=== PATIENT | female | born 1990 | race Caucasian/White ===

== ENCOUNTER 2019-03-14 10:48 | Emergency (ER) | payer MEDICAID ==
[2019-03-14] MEDS ORDERED: OXYCODONE-ACETAMINOPHEN 5-325 MG TABLET PO ONE (11:25)
[2019-03-14] MEDS ORDERED: PROMETHAZINE HCL 25 MG TABLET PO ONE (11:25)
[2019-03-14] MEDS ORDERED: CEFTRIAXONE 1 GM/D5W RTU 1 GM/50 ML RTUPB IV ONE (11:28)
--- NOTE | 2019-03-14 11:40 | ER Document Report ---
ED Breast Problem - General Chief Complaint: Breast Problem Stated Complaint: PAIN IN BREAST Time Seen by Provider: 03/14/19 11:19 Primary Care Provider: DARREN JON MD [ACTIVE STAFF] - Follow up as needed Notes: Patient is complaining of pain and swelling of her right breast. She says that she noted pain of the anterior lateral right breast for about 3 days and then swelling for 1 day. There is been no drainage. Patient had surgery on that breast a couple of months ago in [place] and says she was never told that there was any cancer or other serious condition. TRAVEL OUTSIDE OF THE [place] IN LAST 30 DAYS: No - Related Data Allergies/Adverse Reactions: azithromycin Allergy (Verified 03/14/19 10:49) Past Medical History - Social History Smoking Status: Current Every Day Smoker Frequency of alcohol use: None Drug Abuse: None Family History: Reviewed & Not Pertinent Patient has suicidal ideation: No Patient has homicidal ideation: No Malignancy Medical History: Denies: Hx Breast Cancer Past Surgical History: Reports: Hx Breast Surgery, Hx Section - x2 - Immunizations Hx Diphtheria, Pertussis, Tetanus Vaccination: No - contraindicated Review of Systems - Review of Systems Notes: CONSTITUTIONAL : Denies fever. CARDIOVASCULAR: Denies chest pain. RESPIRATORY: Denies cough, chest congestion, or shortness of breath. GASTROINTESTINAL: Denies abdominal pain or nausea, vomiting, or diarrhea. GENITOURINARY: Denies difficulty or painful urinating, urinary frequency, blood in urine. Physical Exam - Vital signs Vitals: Temp Pulse Resp BP Pulse Ox 98.3 F 69 16 135/73 H 98 03/14/19 10:52 03/14/19 10:52 03/14/19 10:52 03/14/19 10:52 03/14/19 10:52 Interpretation: Normal Notes: PHYSICAL EXAMINATION: GENERAL: Well-appearing, in no acute distress. HEAD: Atraumatic, normocephalic. NECK: Normal range of motion, supple. LUNGS: Breath sounds clear and equal bilaterally. HEART: Regular rate and rhythm without murmurs. ABDOMEN: Soft, nontender. No guarding or rebound. No masses. BACK: No tenderness throughout entire back. BREAST: Left breast is normal. Right breast is slightly swollen to appearance and touch and very tender at the right nipple and just lateral to the right nipple and feels as if there may be a collection of fluid present there. Very faint pink hue in the region around the nipple into the right side of the nipple. Scarring from previous surgical procedure present. SKIN: Warm, dry, no rashes.B Course - Vital Signs Vital signs: Temp Pulse Resp BP Pulse Ox 98.3 F 69 16 135/73 H 98 03/14/19 10:52 03/14/19 10:52 03/14/19 10:52 03/14/19 10:52 03/14/19 10:52 - Laboratory Result Diagrams: 03/14/19 12:35 03/14/19 12:35 Discharge - Discharge Clinical Impression: Mastitis Condition: Stable Disposition: HOME, SELF-CARE Additional Instructions: Mastitis (Breast Infection) You have an infection in your breast, called mastitis. This is due to bacteria invading the breast through the milk ducts. Mastitis can be serious, and must be treated carefully. Antibiotics are required. Usually, warm packs are recommended. Some improvement should be evident within 24 to 36 hours. If you're breast-feeding, you should continue to nurse the baby. The baby won't be harmed by the milk from the infected breast. If you stop nursing, the breast must be pumped. If milk builds up in the breast, the infection can dramatically worsen! Follow-up care is important to check for abscess (boil) formation or resistant infection. If you develop fever, chills, or if the area of infection is becoming rapidly more swollen or painful, call the doctor at once. CELLULITIS: You have an infection of your skin and underlying soft tissues called cellulitis. This is due to bacteria, which can enter through any break in the skin, or even through an irritated hair follicle. Untreated, cellulitis will usually worsen. Antibiotics are required. Usually, warm packs or warm soaks, and elevation of the infected area are recommended. You should start getting better within 24 to 36 hours. Most infections respond quickly to the right medication. Follow-up care is important, however, to check for abscess (boil) formation, unsuspected foreign body, or resistant infection. If you develop fever, chills, or if the area of infection is becoming rapidly more swollen or painful, call the doctor at once. ANTIBIOTIC THERAPY: You have been given an antibiotic prescription. It's important that you take all the medication, unless instructed otherwise by your physician. Failure to complete the entire course can result in relapse of your condition. Common side effects of antibiotics include nausea, intestinal cramping, or diarrhea. Women may develop vaginal yeast infections, and babies can get yeast (thrush) in the mouth following the use of antibiotics. Contact your physician if you develop significant side effects from this medication. Allergy to this antibiotic can result in hives, wheezing, faintness, or itching. If symptoms of allergy occur, stop the medication and call the doctor. Cephalexin The antibiotic you've been prescribed is a member of the cephalosporin class. This type of antibiotic covers a wide variety of infections, including those of the skin, lungs, and urinary tract. It's useful for staph infections. This antibiotic is slightly similar to the penicillin family. In rare cases, a person who is allergic to penicillin will also be allergic to this medication. If you have had a severe allergic reaction to penicillin, and have not taken this antibiotic since that time, notify your doctor. Antibiotics which cover many germs ("broad spectrum" antibiotics) are more likely to cause diarrhea or "yeast" infections. Women prone to vaginal yeast problems may suffer an attack after taking this antibiotic. In infants, oral thrush (white spots "stuck" on the cheek) or yeast diaper rash may result. See your doctor if these problems occur. Call at once if you develop itching, hives, shortness of breath, or lightheadedness. ORAL NARCOTIC MEDICATION: You have been given a prescription for pain control. This medication is a narcotic. It's best taken with food, as nausea can result if taken on an empty stomach. Don't operate machinery or drive within six hours of taking this medication. Do not combine this medicine with alcohol, or with any medication which can cause sedation (such as cold tablets or sleeping pills) unless you get permission from the physician. Narcotics tend to cause constipation. If possible, drink plenty of fluids and eat a diet high in fiber and fruits. Please be aware that prescription narcotics also have the potential for abuse. People become addicted to these medications because of the general sense of wellbeing that they induce. This feeling along with a significant reduction in tension, anxiety, and aggression provides a stimulating seductive quality to these drugs. Once your pain is under control, we encourage you to discard your unused narcotics. Antinausea Medication You have been given a medication to suppress nausea and vomiting. This type of medication can be given as a shot, pill, or suppository. It will usually last for many hours. Pills and shots usually last six to eight hours, suppositories last about 12 hours. For the typical illness, only one or two doses of the medication may be necessary. Mild lightheadedness may occur. This type of medicine can cause drowsiness. Do not drive or operate dangerous machinery while under its influ ence. Do not mix with alcohol. See your doctor at once if you have muscle spasms or tightness, or uncontrollable motions (particularly of the neck, mouth, or jaw). Persistent vomiting or severe lightheadedness should also be evaluated by the physician. FOLLOW-UP CARE: If you have been referred to a physician for follow-up care, call the physicians office for an appointment as you were instructed or within the next two days. If you experience worsening or a significant change in your symptoms, notify the physician immediately or return to the Emergency Department at any time for re-evaluation. Apply warm compresses to the right breast for about 15 to 20 minutes every 4 ho urs, more often if you are able to. Take the medication as prescribed. Return if your symptoms worsen. Prescriptions: Cephalexin [Cephalexin 500 MG Tablet] 1 tab PO TID #30 tablet Oxycodone HCl/Acetaminophen [Percocet 5-325 mg Tablet] 1 - 2 tab PO Q4H PRN #15 tablet PRN Reason: Promethazine HCl [Phenergan 25 mg Tablet] 1 - 2 tab PO Q6H PRN #15 tablet PRN Reason: Referrals: DARREN JON MD [ACTIVE STAFF] - Follow up as needed
[2019-03-14 12:53] LABS: ABSOLUTE BASOPHILS # (AUTO) 0.1 10^3/uL (0.0-0.2); ABSOLUTE EOSINOPHILS # (AUTO) 0.1 10^3/uL (0.0-0.6); ABSOLUTE LYMPHOCYTES (AUTO) 2.4 10^3/uL (0.5-4.7); ABSOLUTE MONOCYTES (AUTO) 0.8 10^3/uL (0.1-1.4); ABSOLUTE NEUT (AUTO) 6.2 10^3/uL (1.7-8.2); BASOPHILS % (AUTO) 0.9 % (0-2); EOSINOPHILS % (AUTO) 1.1 % (0-6); HEMATOCRIT 45.6 % (36.0-47.0); HEMOGLOBIN 15.9 g/dL (12.0-15.5); LYMPHOCYTES % (AUTO) 25.4 % (13-45); MEAN CORPUSCULAR HEMOGLOBIN 33.2 pg (27.0-33.4); MEAN CORPUSCULAR VOLUME 95 fl (80-97); MONOCYTES % (AUTO) 8.6 % (3-13); PLATELET COUNT 203 10^3/uL (150-450); RED BLOOD COUNT 4.79 10^6/uL (3.72-5.28); RED CELL DISTRIBUTION WIDTH 12.7 % (11.5-14.0); TOTAL CELLS COUNTED % (AUTO) 100 %; WHITE BLOOD COUNT 9.6 10^3/uL (4.0-10.5)
[2019-03-14 13:12] LABS: ALBUMIN 4.1 g/dL (3.5-5.0); ALKALINE PHOSPHATASE 55 U/L (38-126); ANION GAP 9 (5-19); ASPARTATE AMINO TRANSFERASE 20 U/L (14-36); BILIRUBIN,DIRECT 0.3 mg/dL (0.0-0.4); BILIRUBIN,TOTAL 0.5 mg/dL (0.2-1.3); BLOOD UREA NITROGEN 10 mg/dL (7-20); CALCIUM 9.3 mg/dL (8.4-10.2); CARBON DIOXIDE 23 mmol/L (22-30); CHLORIDE 107 mmol/L (98-107); POTASSIUM 4.1 mmol/L (3.6-5.0); TOTAL PROTEIN 6.9 g/dL (6.3-8.2)
[2019-03-14 13:18] LABS: GLUCOSE 67 mg/dL (75-110)
[2019-03-14] MEDS ORDERED: DEXTROSE 50%-WATER 25 GM/50 ML DISP.SYRIN IV ONE ×4 (13:20→13:25)
[2019-03-14 14:42] VITALS: BP 126/60
--- NOTE | 2019-03-14 14:50 | RADIOLOGY REPORT (SQ) ---
EXAM DESCRIPTION: U/S BREAST UNILATERAL LIMITED COMPLETED DATE/TIME: 03/14/2019 1:48 pm REASON FOR STUDY: Surgery right breast months ago, pain,swelling X2D COMPARISON: None TECHNIQUE: Static and Realtime grayscale interrogation of the lateral half right breast in the area of pain and swelling. Selected color doppler/spectral images saved to PACS. LIMITATIONS: None. FINDINGS: Patient has a history of mastitis right lateral breast, and surgical drainage several dewey hs ago. She returns to the emergency room today with redness swelling and pain in the lateral half o f the right breast. Ultrasound of the lateral right breast demonstrates no discrete cystic lesions. No well circumscribe d abscess. No worrisome acoustic absorption. Findings discussed with Dr. Pinon in the emergency room. IMPRESSION: No ultrasound evidence of right lateral breast abscess BIRAD: 1 Negative. RECOMMENDATION: RECOMMENDED FOLLOW-UP: Clinical follow-up recommended COMMENT: The [employer] ([employer]) has developed recommendations for screening MRI of the breasts in certain patient populations, to be used in conjunction with mammography. Breast MRI s urveillance may be appropriate for women with more than 20% lifetime risk of developing breast cancer as determined by genetic testing, significant family history of the disease, or history of mantle r adiation for Hodgkins Disease. ACR Practice Guidelines 2008. TECHNICAL DOCUMENTATION: FINDING NUMBER: (1) ASSESSMENT: (1) JOB ID: [id number] [employer]- All Rights Reserved Reading location - IP/workstation name: [email or web address]
== END 2019-03-14 15:30 | disposition home or self-care (01) ==
LOC: ER 10:48
DX: N64.4 Mastodynia (principal); F17.200 Nicotine dependence, unspecified, uncomplicated; Z88.3 Allergy status to other anti-infective agents
CPT/HCPCS: 99284; 96375; 96365; 36415; 82962; 85025; 80053; 76642; J3490 ×2; J0696

== ENCOUNTER 2019-09-18 14:02 | Observation (INO) | payer MEDICAID ==
[2019-09-18] MEDS ORDERED: ASPIRIN 81 MG TABLET, CHEWABLE PO ONE (14:27)
--- NOTE | 2019-09-18 14:38 | ER Document Report ---
ED General - General Chief Complaint: Chest Pain Stated Complaint: CHEST PAIN,LEFT SHOULDER PAIN Time Seen by Provider: 09/18/19 14:21 Primary Care Provider: DAJUAN YANEZ FNP-C [Primary Care Provider] - Follow up as needed Mode of Arrival: Ambulatory Information source: Patient Notes: 29-year-old female arrives by POV through triage with left sided chest pain radiating to her left jaw since around 2100 hours last night. She was at taoism at the time when this occurred. Patient has been a 1 pack/day smoker since she was 13 years old. Her father at age 62 from [place]. Her mother is 20 years older than her and had an [place] when she was much younger. They were all smokers. Patient denies any alcohol use or drug use. She has never had this in the past. She did have nausea but no vomiting associated with this and is quite tearful at this time. She denies any deaths in the family or any emotional trauma at this time. Her chest pain is around 5 out of 10. TRAVEL OUTSIDE OF THE [place] IN LAST 30 DAYS: No - HPI Onset: This evening Quality of pain: Achy Severity: Moderate Pain Level: 2 Associated symptoms: Nausea Exacerbated by: Movement, Deep breathing Relieved by: Denies Similar symptoms previously: No Recently seen / treated by doctor: No - Related Data Allergies/Adverse Reactions: azithromycin Allergy (Verified 03/14/19 10:49) Past Medical History - General Information source: Patient - Social History Smoking Status: Current Every Day Smoker Cigarette use (# per day): Yes - 3/4-1 ppd Chew tobacco use (# tins/day): No Smoking Education Provided: Yes Frequency of alcohol use: None Drug Abuse: None Lives with: Family Family History: Reviewed & Not Pertinent Patient has suicidal ideation: No Patient has homicidal ideation: No Malignancy Medical History: Denies: Hx Breast Cancer Past Surgical History: Reports: Hx Breast Surgery, Hx Section - x2 - Immunizations Hx Diphtheria, Pertussis, Tetanus Vaccination: No - contraindicated Review of Systems - Review of Systems Constitutional: No symptoms reported EENT: No symptoms reported Cardiovascular: Chest pain Respiratory: No symptoms reported Gastrointestinal: See HPI, Nausea Genitourinary: No symptoms reported Female Genitourinary: No symptoms reported Musculoskeletal: No symptoms reported Skin: No symptoms reported Hematologic/Lymphatic: No symptoms reported Neurological/Psychological: No symptoms reported Physical Exam - Vital signs Vitals: Temp Pulse Resp BP Pulse Ox 99.3 F 42 L 16 143/91 H 98 09/18/19 14:21 09/18/19 14:21 09/18/19 14:21 09/18/19 14:21 09/18/19 14:21 Interpretation: Normal - HEENT Head: Normocephalic Eyes: Normal Conjunctiva: Normal Cornea: Normal Extraocular movements intact: Yes Eyelashes: Normal Pupils: PERRL Mucous membranes: Normal Pharynx: Erythema Neck: Normal - Respiratory Respiratory status: No respiratory distress Chest status: Nontender Breath sounds: Normal Chest palpation: Normal - Cardiovascular Rhythm: Regular Heart sounds: Normal auscultation Murmur: Yes Friction rub: No Ting's crunch: No - Abdominal Inspection: Normal Distension: No distension Bowel sounds: Normal Tenderness: Nontender Organomegaly: No organomegaly - Back Back: Normal - Extremities General upper extremity: Normal inspection General lower extremity: Normal inspection - Neurological Neuro grossly intact: Yes Cognition: Normal Orientation: AAOx4 [place] Coma Scale Eye Opening: Spontaneous [place] Coma Scale Verbal: Oriented [place] Coma Scale Motor: Obeys Commands Etta Coma Scale Total: 15 Speech: Normal Cranial nerves: Normal Cerebellar coordination: Normal Motor strength normal: LUE, RUE, LLE, RLE - Psychological Associated symptoms: Normal affect - Skin Skin Temperature: Warm Skin Moisture: Dry Course - Vital Signs Vital signs: Temp Pulse Resp BP Pulse Ox 99.3 F 42 L 23 H 102/74 98 09/18/19 14:21 09/18/19 14:21 09/18/19 17:01 09/18/19 17:01 09/18/19 17:01 - Laboratory Result Diagrams: 09/18/19 14:35 09/18/19 14:35 Laboratory results interpreted by me: 09/18/19 14:35 Hgb 16.7 H MCH 33.5 H - Diagnostic Test Radiology reviewed: Reports reviewed - EKG Interpretation by Me EKG shows normal: Sinus rhythm Rate: Normal Rhythm: Other - Question of ST elevation in the inferior leads Critical Care Note - Critical Care Note Total time excluding time spent on procedures (mins): 90 Comments: I discussed this case with Dr. Goldman and also with ASAD [place] and also with Dr. Martinez. We will place in hospital for observation admission to rule out MS Discharge - Discharge Clinical Impression: Chest pain at rest, Cigarette smoker Condition: Good Disposition: ADMITTED INPATIENT Admitting Provider: Zion (Hospitalist) Referrals: DAJUAN YANEZ FNP-C [Primary Care Provider] - Follow up as needed
[2019-09-18] MEDS ORDERED: ONDANSETRON HCL INJ/PF 4 MG/2 ML SDV IV ONE (15:07)
[2019-09-18] MEDS ORDERED: MORPHINE SULFATE 10 MG/ML INJ IV ONE (15:07)
[2019-09-18 15:08] LABS: ABSOLUTE BASOPHILS # (AUTO) 0.1 10^3/uL (0.0-0.2); ABSOLUTE EOSINOPHILS # (AUTO) 0.1 10^3/uL (0.0-0.6); ABSOLUTE LYMPHOCYTES (AUTO) 2.5 10^3/uL (0.5-4.7); ABSOLUTE MONOCYTES (AUTO) 0.5 10^3/uL (0.1-1.4); ABSOLUTE NEUT (AUTO) 6.1 10^3/uL (1.7-8.2); BASOPHILS % (AUTO) 0.6 % (0-2); EOSINOPHILS % (AUTO) 0.6 % (0-6); HEMATOCRIT 46.8 % (36.0-47.0); HEMOGLOBIN 16.7 g/dL (12.0-15.5); LYMPHOCYTES % (AUTO) 27.1 % (13-45); MEAN CORPUSCULAR HEMOGLOBIN 33.5 pg (27.0-33.4); MEAN CORPUSCULAR HGB CONC 35.7 g/dL (32.0-36.0); MEAN CORPUSCULAR VOLUME 94 fl (80-97); MONOCYTES % (AUTO) 5.6 % (3-13); PLATELET COUNT 226 10^3/uL (150-450); RED BLOOD COUNT 4.99 10^6/uL (3.72-5.28); RED CELL DISTRIBUTION WIDTH 12.8 % (11.5-14.0); SEGMENTED NEUTROPHILS % (AUTO) 66.1 % (42-78); TOTAL CELLS COUNTED % (AUTO) 100 %; WHITE BLOOD COUNT 9.3 10^3/uL (4.0-10.5)
[2019-09-18 15:24] LABS: INTERNATIONAL RATION (INR) 0.94; PROTHROMBIN TIME 12.6 SEC (11.4-15.4)
[2019-09-18 15:26] LABS: ALBUMIN 4.5 g/dL (3.5-5.0); ALKALINE PHOSPHATASE 69 U/L (38-126); ANION GAP 11 (5-19); ASPARTATE AMINO TRANSFERASE 22 U/L (14-36); BILIRUBIN,DIRECT 0.3 mg/dL (0.0-0.4); BILIRUBIN,TOTAL 0.4 mg/dL (0.2-1.3); BLOOD UREA NITROGEN 11 mg/dL (7-20); CALCIUM 9.7 mg/dL (8.4-10.2); CARBON DIOXIDE 23 mmol/L (22-30); CHLORIDE 105 mmol/L (98-107); CREATINE KINASE 65 U/L (30-135); GLUCOSE 83 mg/dL (75-110); POTASSIUM 4.1 mmol/L (3.6-5.0); TOTAL PROTEIN 7.8 g/dL (6.3-8.2)
[2019-09-18 15:35] LABS: CREATINE KINASE MB 0.39 ng/mL (<4.55); PARTIAL THROMBOPLASTIN TIME 28.6 SEC (23.5-35.8)
[2019-09-18 15:40] LABS: TROPONIN I < 0.012 ng/mL
--- NOTE | 2019-09-18 15:42 | RADIOLOGY REPORT (SQ) ---
EXAM DESCRIPTION: CHEST SINGLE VIEW COMPLETED DATE/TIME: 09/18/2019 3:14 pm REASON FOR STUDY: chest pain COMPARISON: None. EXAM PARAMETERS: NUMBER OF VIEWS: One view. TECHNIQUE: Single frontal radiographic view of the chest acquired. RADIATION DOSE: NA LIMITATIONS: None. FINDINGS: LUNGS AND PLEURA: No opacities, masses or pneumothorax. No pleural effusion. MEDIASTINUM AND HILAR STRUCTURES: No masses. Contour normal. HEART AND VASCULAR STRUCTURES: Heart normal in size. Normal vasculature. BONES: No acute findings. HARDWARE: None in the chest. OTHER: No other significant finding. IMPRESSION: NO ACUTE RADIOGRAPHIC FINDING IN THE CHEST. TECHNICAL DOCUMENTATION: JOB ID: [id number] [employer]- All Rights Reserved Reading location - IP/workstation name: [email or web address]
[2019-09-18] MEDS ORDERED: OXYCODONE-ACETAMINOPHEN 5-325 MG TABLET PO PRN (18:21)
[2019-09-18] MEDS ORDERED: ZOLPIDEM TARTRATE 5 MG TABLET PO PRN (18:21)
[2019-09-18] MEDS ORDERED: ACETAMINOPHEN 325 MG TABLET PO PRN (18:21)
[2019-09-18] MEDS ORDERED: IPRATROPIUM/ALBUTEROL 0.5-2.5 MG/3 ML AMPUL NEB PRN (18:21)
[2019-09-18] MEDS ORDERED: MORPHINE SULFATE 10 MG/ML INJ IV PRN (18:21)
--- NOTE | 2019-09-18 18:37 | PDOC H&P ---
History of Present Illness Admission Date/PCP: BENJAMÍN PRICE Patient complains of: Patient presents emergency room with complaints of left- sided chest pain which started yesterday History of Present Illness: BALDO RACHEL is a 29 year old female Patient presents emergency room with complaints of left-sided chest pain which started yesterday. She says it is radiating up jaw as well as down her left. She denies any previous episode. She gives a history of cardiac disease in her family. Her father at age 62 from an [place] and mother also had an [place] at about age 50. Patient does smoke about 1 pack a day. She denies any chest pain at this time. She said her chest pain was relieved with aspirin and morphine that was given in the ER. She denies any nausea vomiting or any other pertinent symptoms. Past Medical History Medical History: None Malignancy Medical History: Denies: Breast Cancer Past Surgical History Past Surgical History: Reports: Section - x2 Social History Information Source: Patient Lives with: Family Smoking Status: Current Every Day Smoker Electronic Cigarette use?: No Frequency of Alcohol Use: Rare Hx Recreational Drug Use: No Hx Prescription Drug Abuse: No - Advance Directive Resuscitation Status: Full Code Family History Parental Family History Reviewed: Yes - Father from [place] mother also had [place] at age 50 Children Family History Reviewed: Yes Sibling(s) Family History Reviewed.: Yes Medication/Allergy Allergies/Adverse Reactions: azithromycin Allergy (Verified 03/14/19 10:49) Review of Systems All systems: reviewed and no additional remarkable complaints except as stated Cardiovascular: ABSENT: dyspnea on exertion, edema, orthropnea, palpitations Respiratory: ABSENT: cough Physical Exam Vital Signs: Temp Pulse Resp BP Pulse Ox 99.3 F 42 L 23 H 94/67 L 95 09/18/19 14:21 09/18/19 14:21 09/18/19 18:01 09/18/19 18:01 09/18/19 18:01 Intake & Output 09/17/19 09/18/19 09/19/19 06:59 06:59 06:59 Weight 126.7 kg General appearance: PRESENT: no acute distress, well-developed, well-nourished Head exam: PRESENT: atraumatic, normocephalic Eye exam: PRESENT: conjunctiva pink, EOMI, PERRLA. ABSENT: scleral icterus Ear exam: PRESENT: normal external ear exam Mouth exam: PRESENT: moist, tongue midline Neck exam: ABSENT: carotid bruit, JVD, lymphadenopathy, thyromegaly Respiratory exam: PRESENT: clear to auscultation sedrick. ABSENT: rales, rhonchi, wheezes Cardiovascular exam: PRESENT: irregular rhythm, +S1, +S2. ABSENT: diastolic murmur, rubs, systolic murmur Pulses: PRESENT: normal dorsalis pedis pul Vascular exam: PRESENT: normal capillary refill GI/Abdominal exam: PRESENT: normal bowel sounds, soft. ABSENT: distended, guarding, mass, organolmegaly, rebound, tenderness Rectal exam: PRESENT: deferred Extremities exam: PRESENT: full ROM. ABSENT: calf tenderness, clubbing, pedal edema Neurological exam: PRESENT: alert, awake, oriented to person, oriented to place, oriented to time, oriented to situation, CN II-XII grossly intact. ABSENT: motor sensory deficit Psychiatric exam: PRESENT: appropriate affect, normal mood. ABSENT: homicidal ideation, suicidal ideation Skin exam: PRESENT: dry, intact, warm. ABSENT: cyanosis, rash Results Laboratory Results: 09/18/19 14:35 09/18/19 14:35 09/18/19 09/18/19 09/18/19 14:35 14:35 14:35 WBC 9.3 RBC 4.99 Hgb 16.7 H Hct 46.8 MCV 94 MCH 33.5 H MCHC 35.7 RDW 12.8 Plt Count 226 Seg Neutrophils % 66.1 Sodium 139.2 Potassium 4.1 Chloride 105 Carbon Dioxide 23 Anion Gap 11 BUN 11 Creatinine 0.75 Est GFR ( Amer) > 60 Glucose 83 Calcium 9.7 Total Bilirubin 0.4 AST 22 Alkaline Phosphatase 69 Total Protein 7.8 Albumin 4.5 TSH 1.35 09/18/19 09/18/19 09/18/19 14:35 14:35 17:29 Creatine Kinase 65 CK-MB (CK-2) 0.39 Troponin I < 0.012 < 0.012 Impressions: Chest X-Ray 09/18/19 14:22 IMPRESSION: NO ACUTE RADIOGRAPHIC FINDING IN THE CHEST. Assessment and Plan - Diagnosis (1) Chest pain at rest Is this a current diagnosis for this admission?: Yes (2) Arrhythmia, atrial Is this a current diagnosis for this admission?: Yes (3) Cigarette smoker Is this a current diagnosis for this admission?: Yes - Plan Summary Summary: Have not been able to review the EKG so was not available in the computer for me however the ED physician did states that EKG showed some abnormal T waves and so he consulted cardiology. Dr. Goldman apparently ruled evaluate patient later. At this time as she apparently had abnormal EKG I have deferred ordering any on telemetry. . I will defer starting on any metoprolol at this time. stress test pending review by the smooth plater. When I was also in the room I noted t he patient had some variable and irregular heart rate She was asymptomatic but her heart rate did get down into about 48 She will be monitored on telemetry I will order an echocardiogram however - Time Time Spent with patient: 25-34 minutes Smoking Cessation Education: 3 to 10 minutes Anticipated discharge: Home Within: within 24 hours - Inpatient Certification Based on my medical assessment, after consideration of the patient's comorbidities, presenting symptoms, or acuity I expect that the services needed warrant INPATIENT care.: Yes
[2019-09-19 04:36] LABS: APPEARANCE,URINE CLEAR; BILIRUBIN,URINE NEGATIVE (NEGATIVE); COLOR,URINE YELLOW; GLUCOSE, URINE NEGATIVE (NEGATIVE); KETONES,URINE NEGATIVE (NEGATIVE); LEUKOCYTE ESTERASE,URINE NEGATIVE (NEGATIVE); NITRITE,URINE NEGATIVE (NEGATIVE); PROTEIN,URINE NEGATIVE (NEGATIVE); URINE SPECIFIC GRAVITY 1.016; UROBILINOGEN,URINE NEGATIVE mg/dL (<2.0)
[2019-09-19] MEDS ORDERED: PANTOPRAZOLE SODIUM 40 MG TABLET.DR PO SCH (06:00)
[2019-09-19] MEDS ORDERED: ENOXAPARIN SODIUM INJ 40 MG/0.4 ML DISP.SYRIN SUBCUT SCH (10:00)
[2019-09-19] MEDS ORDERED: ASPIRIN 81 MG TABLET, ENT COATED PO SCH (10:00)
--- NOTE | 2019-09-19 11:00 | PDOC CONSULTATION ---
Consultation Consult Date: 09/19/19 Attending physician:: ROMY HAGAN Provider Consulted: DEVANTE BAUMANN Consult reason:: Chest pain History of Present Illness Admission Date/PCP: 09/18/19 18:29 BENJAMÍN PRICE Patient complains of: Chest pain History of Present Illness: BALDO RACHEL is a 29 year old female with no significant prior medical history presents with chest pain since last three days. Acute onset. No recent illness. No prior cardiac history whatsoever. Smokes less than a pack of cigarettes/day. Chest pain is somewhat positional. Left upper chest with radiation to the left shoulder. No associated symptoms. No diaphoresis or nausea. No palpitations or syncope. Chest pain is better lying down and worse sitting up. No pleuritic component. If she takes a large breath and holds it the chest pain is better. Works with children. Family h/o premature CAD Does not mention any surgeries. Past Medical History Malignancy Medical History: Denies: Breast Cancer Psychiatric Medical History: Reports: Depression Past Surgical History Past Surgical History: Reports: Section - x2 Social History Lives with: Family Smoking Status: Current Every Day Smoker Cigarettes Packs Per Day: 1 Electronic Cigarette use?: No Number of Years Smokin Frequency of Alcohol Use: Rare Hx Recreational Drug Use: No Drugs: None Hx Prescription Drug Abuse: No - Advance Directive Resuscitation Status: Full Code Family History Family History: Reviewed & Not Pertinent Parental Family History Reviewed: No - No familiail illnesses Children Family History Reviewed: NA Sibling(s) Family History Reviewed.: NA Medication/Allergy Home Medications: Aspirin [Ecotrin 81 mg EC Tablet] 81 mg PO DAILY 30 Days #30 tabec 09/19/19 Atorvastatin Calcium [Lipitor 10 mg Tablet] 10 mg PO QHS 30 Days #30 tablet 09/19/19 Allergies/Adverse Reactions: azithromycin Allergy (Verified 03/14/19 10:49) Review of Systems Constitutional: PRESENT: as per HPI. ABSENT: anorexia, chills, fatigue, fever(s), headache(s), night sweats, weakness, weight gain, weight loss, other Cardiovascular: PRESENT: chest pain Respiratory: ABSENT: as per HPI, cough, dyspnea, hemoptysis, sputum, other Physical Exam Vital Signs: Temp Pulse Resp BP Pulse Ox 98.2 F 65 18 106/49 L 95 09/19/19 08:13 09/19/19 08:13 09/19/19 08:13 09/19/19 08:13 09/19/19 08:13 Intake & Output 09/18/19 09/19/19 09/20/19 06:59 06:59 06:59 Intake Total 220 Output Total 400 Balance -180 Weight 124.1 kg General appearance: PRESENT: cooperative, obese, well-developed, well-nourished Head exam: PRESENT: atraumatic Eye exam: PRESENT: conjunctiva pink, EOMI Neck exam: PRESENT: full ROM Respiratory exam: PRESENT: clear to auscultation sedrick, symmetrical, unlabored Cardiovascular exam: PRESENT: RRR - No rub, +S1, +S2 GI/Abdominal exam: PRESENT: soft Rectal exam: PRESENT: deferred Musculoskeletal exam: PRESENT: normal inspection Neurological exam: PRESENT: alert, awake, oriented to person, oriented to place, oriented to time, oriented to situation Skin exam: PRESENT: dry, intact, normal color Results Laboratory Results: 09/18/19 14:35 09/18/19 14:35 09/18/19 09/18/19 09/18/19 14:35 14:35 14:35 WBC 9.3 RBC 4.99 Hgb 16.7 H Hct 46.8 MCV 94 MCH 33.5 H MCHC 35.7 RDW 12.8 Plt Count 226 Seg Neutrophils % 66.1 Sodium 139.2 Potassium 4.1 Chloride 105 Carbon Dioxide 23 Anion Gap 11 BUN 11 Creatinine 0.75 Est GFR ( Amer) > 60 Glucose 83 Calcium 9.7 Total Bilirubin 0.4 AST 22 Alkaline Phosphatase 69 Total Protein 7.8 Albumin 4.5 TSH 1.35 Urine Color Urine Appearance Urine pH Ur Specific [place] Urine Protein Urine Glucose (UA) Urine Ketones Urine Blood Urine Nitrite Ur Leukocyte Esterase Urine WBC (Auto) Urine RBC (Auto) 09/19/19 04:13 WBC RBC Hgb Hct MCV MCH MCHC RDW Plt Count Seg Neutrophils % Sodium Potassium Chloride Carbon Dioxide Anion Gap BUN Creatinine Est GFR ( Amer) Glucose Calcium Total Bilirubin AST Alkaline Phosphatase Total Protein Albumin TSH Urine Color YELLOW Urine Appearance CLEAR Urine pH 6.0 Ur Specific [place] 1.016 Urine Protein NEGATIVE Urine Glucose (UA) NEGATIVE Urine Ketones NEGATIVE Urine Blood NEGATIVE Urine Nitrite NEGATIVE Ur Leukocyte Esterase NEGATIVE Urine WBC (Auto) 1 Urine RBC (Auto) 1 09/18/19 09/18/19 09/18/19 14:35 14:35 17:29 Creatine Kinase 65 CK-MB (CK-2) 0.39 Troponin I < 0.012 < 0.012 09/19/19 09/19/19 00:36 07:05 Creatine Kinase CK-MB (CK-2) Troponin I < 0.012 < 0.012 EKG Comments: Telemetry SR , Sinus arrhythmia. Sinus bradycardia-predominantly 40-50 bpm range. 12 Lead EKG independently reviewed by me 09/18/2019 1410 SR 79 bpm, Normal AV conduction, Ein=627 ms. Miniaml KAMLESH inferior leads. No reciprocal changes 12 Lead EKG independently reviewed by me 09/19/2019 0448 SB 45 bpm, Normal AV conduction, KIx=541 ms. Minimal KAMLESH multiple leads. NM depression multiple leads. NM elevation AVR Impressions: Chest X-Ray 09/18/19 14:22 IMPRESSION: NO ACUTE RADIOGRAPHIC FINDING IN THE CHEST. Status: Image reviewed by me - Negative for acute patholgy. Normal cardiac [place], Clear lung [place]. Assessment & Plan - Diagnosis (1) Chest pain at rest Is this a current diagnosis for this admission?: Yes Plan: Descripton of symptoms suggests acute pericarditis or pleurisy Unlikely ACS. Risk factors include Nicotine dependence and + family history Negative Troponins X4 EKG with KAMLESH multiple leads and NM depression Would recommend trial of NSAIDs Would not risk stratify at the moment Out patient follow up next week-will arrange (2) Cigarette smoker Is this a current diagnosis for this admission?: Yes Plan: Counselled regarding ill effects of smoking cigarettes Time spend was 4 minutes
--- NOTE | 2019-09-19 12:06 | EKG REPORT ---
SEVERITY:- OTHERWISE NORMAL ECG - SINUS BRADYCARDIA : Confirmed by: Laila Krishna 19-Sep-2019 12:04:53
[2019-09-19 13:49] VITALS: BP 118/62
--- NOTE | 2019-09-19 14:26 | PDOC DISCHARGE SUMMARY ---
Impression - Admit/DC Date/PCP Admission Date/Primary Care Provider: 09/18/19 18:29 BENJAMÍN PRICE Discharge Date: 09/19/19 - Discharge Diagnosis (1) Arrhythmia, atrial Is this a current diagnosis for this admission?: Yes (2) Chest pain at rest Is this a current diagnosis for this admission?: Yes (3) Cigarette smoker Is this a current diagnosis for this admission?: Yes - Assessment Summary: Have not been able to review the EKG so was not available in the computer for me however the ED physician did states that EKG showed some abnormal T waves and so he consulted cardiology. Dr. Godlman apparently ruled evaluate patient later. At this time as she apparently had abnormal EKG I have deferred ordering any on telemetry. . I will defer starting on any metoprolol at this time. stress test pending review by the armor reconnaissance vehicle driver. When I was also in the room I noted the patient had some variable and irregular heart rate She was asymptomatic but her heart rate did get down into about 48 She will be monitored on telemetry I will order an echocardiogram however - Additional Information Resuscitation Status: Full Code Discharge Diet: Cardiac Discharge Activity: Activity As Tolerated Referrals: DEVANET GOLDMAN MD [ACTIVE STAFF] - (left message to call (1:18) sticker in book) DAJUAN YANEZ FNP-C [Primary Care Provider] - Follow up as needed (left a mess age to call --put sticker in book) Prescriptions: Aspirin [Ecotrin 81 mg EC Tablet] 81 mg PO DAILY 30 Days #30 tabec Atorvastatin Calcium [Lipitor 10 mg Tablet] 10 mg PO QHS 30 Days #30 tablet Home Medications: Aspirin [Ecotrin 81 mg EC Tablet] 81 mg PO DAILY 30 Days #30 tabec 09/19/19 Atorvastatin Calcium [Lipitor 10 mg Tablet] 10 mg PO QHS 30 Days #30 tablet 09/19/19 History of Present Illiness History of Present Illness: BALDO RACHEL is a 29 year old female 29 year old female Patient presents emergency room with complaints of left-sided chest pain which started yesterday. She says it is radiating up jaw as well as down her left. She denies any previous episode. She gives a history of cardiac disease in her family. Her father at age 62 from an ID and mother also had an ID at about age 50. Patient does smoke about 1 pack a day. She denies any chest pain at this time. She said her chest pain was relieved with aspirin and morphine that was given in the ER. She denies any nausea vomiting or any other pertinent symptoms. Hospital Course Hospital Course: 29 year old female Patient presents emergency room with complaints of left-sided chest pain which started yesterday. She says it is radiating up jaw as well as down her left. She denies any previous episode. She gives a history of cardiac disease in her family. Her father at age 62 from an ID and mother also had an ID at about age 50. Patient does smoke about 1 pack a day. She denies any chest pain at this time. She said her chest pain was relieved with aspirin and morphine that was given in the ER. She denies any nausea vomiting or any other pertinent symptoms. 09/19/2019-patient was seen and evaluated by Dr. Jones rajput, he discussed the care with me he plan to do the outpatient stress test. According to him the abnormal EKG secondary to repolarization. Physical Exam Vital Signs: Temp Pulse Resp BP Pulse Ox 98.2 F 65 18 104/61 95 09/19/19 12:55 09/19/19 12:55 09/19/19 12:55 09/19/19 12:55 09/19/19 12:55 Intake & Output 09/18/19 09/19/19 09/20/19 06:59 06:59 06:59 Intake Total 220 500 Output Total 400 300 Balance -180 200 Weight 124.1 kg General appearance: PRESENT: no acute distress, obese Head exam: PRESENT: atraumatic Eye exam: PRESENT: PERRLA Mouth exam: PRESENT: moist, tongue midline Neck exam: ABSENT: carotid bruit, JVD, lymphadenopathy, thyromegaly Respiratory exam: PRESENT: decreased breath sounds Cardiovascular exam: PRESENT: RRR. ABSENT: diastolic murmur, rubs, systolic murmur GI/Abdominal exam: PRESENT: normal bowel sounds, soft. ABSENT: distended, guarding, mass, organolmegaly, rebound, tenderness Rectal exam: PRESENT: deferred Extremities exam: PRESENT: full ROM. ABSENT: calf tenderness, clubbing, pedal edema Neurological exam: PRESENT: alert, awake, oriented to person, oriented to place, oriented to time, oriented to situation, CN II-XII grossly intact. ABSENT: motor sensory deficit Psychiatric exam: PRESENT: appropriate affect, normal mood. ABSENT: homicidal ideation, suicidal ideation Results Laboratory Results: WBC 9.3 10^3/uL (4.0-10.5) 09/18/19 14:35 RBC 4.99 10^6/uL (3.72-5.28) 09/18/19 14:35 Hgb 16.7 g/dL (12.0-15.5) H 09/18/19 14:35 Hct 46.8 % (36.0-47.0) 09/18/19 14:35 MCV 94 fl (80-97) 09/18/19 14:35 MCH 33.5 pg (27.0-33.4) H 09/18/19 14:35 MCHC 35.7 g/dL (32.0-36.0) 09/18/19 14:35 RDW 12.8 % (11.5-14.0) 09/18/19 14:35 Plt Count 226 10^3/uL (150-450) 09/18/19 14:35 Lymph % (Auto) 27.1 % (13-45) 09/18/19 14:35 [place] % (Auto) 5.6 % (3-13) 09/18/19 14:35 Eos % (Auto) 0.6 % (0-6) 09/18/19 14:35 Baso % (Auto) 0.6 % (0-2) 09/18/19 14:35 Absolute Neuts (auto) 6.1 10^3/uL (1.7-8.2) 09/18/19 14:35 Absolute Lymphs (auto) 2.5 10^3/uL (0.5-4.7) 09/18/19 14:35 Absolute Monos (auto) 0.5 10^3/uL (0.1-1.4) 09/18/19 14:35 Absolute Eos (auto) 0.1 10^3/uL (0.0-0.6) 09/18/19 14:35 Absolute Basos (auto) 0.1 10^3/uL (0.0-0.2) 09/18/19 14:35 Seg Neutrophils % 66.1 % (42-78) 09/18/19 14:35 PT 12.6 SEC (11.4-15.4) 09/18/19 14:35 INR 0.94 09/18/19 14:35 APTT 28.6 SEC (23.5-35.8) 09/18/19 14:35 D-Dimer < 0.27 ug/mL (0.00-0.50) 09/18/19 14:35 Sodium 139.2 mmol/L (137-145) 09/18/19 14:35 Potassium 4.1 mmol/L (3.6-5.0) 09/18/19 14:35 Chloride 105 mmol/L (98-107) 09/18/19 14:35 Carbon Dioxide 23 mmol/L (22-30) 09/18/19 14:35 Anion Gap 11 (5-19) 09/18/19 14:35 BUN 11 mg/dL (7-20) 09/18/19 14:35 Creatinine 0.75 mg/dL (0.52-1.25) 09/18/19 14:35 Est GFR ( Amer) > 60 (>60) 09/18/19 14:35 Est GFR (MDRD) Non-Af > 60 (>60) 09/18/19 14:35 Glucose 83 mg/dL (75-110) 09/18/19 14:35 Calcium 9.7 mg/dL (8.4-10.2) 09/18/19 14:35 Total Bilirubin 0.4 mg/dL (0.2-1.3) 09/18/19 14:35 Direct Bilirubin 0.3 mg/dL (0.0-0.4) 09/18/19 14:35 Neonat Total Bilirubin Not Reportable 09/18/19 14:35 Neonat Direct Bilirubin Not Reportable 09/18/19 14:35 Neonat Indirect Bili Not Reportable 09/18/19 14:35 AST 22 U/L (14-36) 09/18/19 14:35 ALT 19 U/L (<35) 09/18/19 14:35 Alkaline Phosphatase 69 U/L (38-126) 09/18/19 14:35 Creatine Kinase 65 U/L (30-135) 09/18/19 14:35 CK-MB (CK-2) 0.39 ng/mL (<4.55) 09/18/19 14:35 Troponin I < 0.012 ng/mL 09/19/19 07:05 Total Protein 7.8 g/dL (6.3-8.2) 09/18/19 14:35 Albumin 4.5 g/dL (3.5-5.0) 09/18/19 14:35 TSH 1.35 uIU/mL (0.47-4.68) 09/18/19 14:35 Urine Color YELLOW 09/19/19 04:13 Urine Appearance CLEAR 09/19/19 04:13 Urine pH 6.0 (5.0-9.0) 09/19/19 04:13 Ur Specific [place] 1.016 09/19/19 04:13 Urine Protein NEGATIVE mg/dL (NEGATIVE) 09/19/19 04:13 Urine Glucose (UA) NEGATIVE mg/dL (NEGATIVE) 09/19/19 04:13 Urine Ketones NEGATIVE mg/dL (NEGATIVE) 09/19/19 04:13 Urine Blood NEGATIVE (NEGATIVE) 09/19/19 04:13 Urine Nitrite NEGATIVE (NEGATIVE) 09/19/19 04:13 Urine Bilirubin NEGATIVE (NEGATIVE) 09/19/19 04:13 Urine Urobilinogen NEGATIVE mg/dL (<2.0) 09/19/19 04:13 Ur Leukocyte Esterase NEGATIVE (NEGATIVE) 09/19/19 04:13 Urine WBC (Auto) 1 /HPF 09/19/19 04:13 Urine RBC (Auto) 1 /HPF 09/19/19 04:13 Squamous Epi Cells Auto 2 /HPF 09/19/19 04:13 Urine Mucus (Auto) RARE /LPF 09/19/19 04:13 Urine Ascorbic Acid NEGATIVE (NEGATIVE) 09/19/19 04:13 Group A Strep Rapid NEGATIVE (NEGATIVE) 09/18/19 15:13 09/18/19 09/18/19 09/19/19 14:35 17:29 00:36 CK-MB (CK-2) 0.39 Troponin I < 0.012 < 0.012 < 0.012 09/19/19 07:05 CK-MB (CK-2) Troponin I < 0.012 Impressions: Chest X-Ray 09/18/19 14:22 IMPRESSION: NO ACUTE RADIOGRAPHIC FINDING IN THE CHEST. Plan Plan of Treatment: Patient is going home today and Dr. Guevara is going to see her in the office and make arrangements for outpatient stress test. Time Spent: Greater than 30 Minutes Stroke Is this a Stroke Patient?: No Acute Heart Failure - Is this a Heart Failure Patient?: No
--- NOTE | 2019-09-20 17:31 | EKG REPORT ---
SEVERITY:- NORMAL ECG - SINUS RHYTHM : Confirmed by: Laila Krishna 20-Sep-2019 17:30:47
== END 2019-09-19 13:53 | disposition home or self-care (01) ==
LOC: ER 14:02 → EH 18:29 → 3W 21:20
PROVIDERS: ADMIT Internal Medicine; ATTEND Internal Medicine
DX: R07.89 Other chest pain (principal); I49.8 Other specified cardiac arrhythmias; F17.210 Nicotine dependence, cigarettes, uncomplicated; E66.9 Obesity, unspecified; R11.0 Nausea; I25.2 Old myocardial infarction; Z79.899 Other long term (current) drug therapy; Z79.82 Long term (current) use of aspirin; Z82.49 Family history of ischemic heart disease and other diseases of the circulatory system
CPT/HCPCS: 93005 ×2; 99291; 99292; 96374; 96375; 36415 ×2; 87070; 82553; 87880; 82550; 84443; 85025; 85610; 85730; 87077; 80053; 81001; 84484 ×2; 85379; 71045; 93010 ×2; 99406; G0378 ×3; J3490 ×3; J2270; J1650; J2405